=== PATIENT | male | born 1930 | race Caucasian/White ===

== ENCOUNTER 2017-02-24 12:23 | Emergency (ER) | payer OTHER, BC ==
[~2017-02-24] VITALS: Ht 188 cm; Wt 94.8 kg
[~2017-02-24 12:23] MED LIST: COUMADIN2.5 MG PO; LOVENOX100 MG/1 M SC
[2017-02-24] MEDS ORDERED: ALLOPURINOL100 MG PO (13:08)
[2017-02-24] MEDS ORDERED: FINASTERIDE5 MG PO (13:09)
[2017-02-24] MEDS ORDERED: TERAZOSIN HCL2 MG PO (13:09)
[2017-02-24] MEDS ORDERED: SIMVASTATIN20 MG PO (13:09)
[2017-02-24] MEDS ORDERED: CALCITRIOL0.25 MCG PO (13:11)
[2017-02-24] MEDS ORDERED: KEFLEX500 MG PO (14:14)
[2017-02-24 14:47] VITALS: BP 149/78
== END 2017-02-24 14:49 | disposition home or self-care (01) ==
LOC: EME 12:23
PROC: 0H96XZZ Drainage of Back Skin, External Approach (ICD-10-PCS; principal; 2017-02-24)
DX: L72.3 Sebaceous cyst (principal); I12.9 Hypertensive chronic kidney disease with stage 1 through stage 4 chronic kidney disease, or unspecified chronic kidney disease; N18.4 Chronic kidney disease, stage 4 (severe)
CPT/HCPCS: 99281; 99284